=== PATIENT | female | born 1980 | race Caucasian/White ===

== ENCOUNTER 2017-05-18 22:36 | Emergency (ER) | payer OTHER ==
[2017-05-18 22:51] VITALS: RESP 20
[2017-05-18] MEDS ORDERED: Sodium Chloride 0.9% 1,000 ML IV STA (23:20)
[2017-05-18 23:32] LABS: BASO # 0.1 K/uL (0.0-0.2); BASO % 1.3 % (0.0-2.0); EOS # 0.1 K/uL (0.0-0.7); EOS % 1.4 % (0.0-4.0); HEMATOCRIT 36.2 % (34.0-47.0); LYMPH # 2.5 K/uL (1.0-4.3); LYMPH % 49.8 % (20.0-40.0); MEAN CELL VOLUME 81.6 fL (81.0-99.0); MEAN CORPUSCULAR HEMOGLOBIN 26.7 pg (27.0-31.0); MEAN CORPUSCULAR HGB CONC 32.8 g/dL (33.0-37.0); MEAN PLATELET VOLUME 8.1 fL (7.2-11.7); MONO # 0.6 K/uL (0.0-0.8); MONO % 12.3 % (0.0-10.0); NRBC % 0.1 % (0.0-2.0); WHITE BLOOD COUNT 5.1 K/uL (4.8-10.8)
[2017-05-18] MEDS ORDERED: Sodium Chloride 0.9% 1,000 ML ONE (23:32)
[2017-05-18 23:49] LABS: ALB/GLOB RATIO 1.3 (1.0-2.1); ALKALINE PHOSPHATASE 33 U/L (38-126); ALT/SGPT 42 U/L (9-52); AST/SGOT 39 U/L (14-36); BILIRUBIN,TOTAL 0.4 mg/dL (0.2-1.3); BLOOD UREA NITROGEN 9 mg/dL (7-17); CALCIUM 9.4 mg/dl (8.6-10.4); CARBON DIOXIDE 25 mmol/L (22-30); CHLORIDE 101 mmol/L (98-107); GFR AFRICAN-AMERICAN > 60; GLUCOSE,RANDOM 63 mg/dL (65-105); POTASSIUM 3.9 mmol/L (3.6-5.2); SODIUM 141 mmol/L (132-148); TOTAL PROTEIN 7.6 g/dL (6.3-8.3)
[2017-05-19 00:19] LABS: THYROID STIMULATING HORMONE < 0.02 mIU/L (0.46-4.68)
--- NOTE | 2017-05-19 01:02 | C.PDOC ---
History Of Present Illness 36 year old female who presents to the ER with a complaint of dizziness that she describes as spinning sensation since yesterday that worsened today while at work. Patient reports the dizziness is positional and worsens with head movement and is associated with nausea. Denies headache, weakness, vomiting, abdominal pain, chest pain, or palpitations. Time Seen by Provider: 05/18/17 23:04 Chief Complaint (Nursing): Medical Clearance History Per: Patient History/Exam Limitations: no limitations Onset/Duration Of Symptoms: Days Recent travel outside of the [place]: No Past Medical History Reviewed: Historical Data, Nursing Documentation, Vital Signs Vital Signs: Last Vital Signs Temp 97.7 F 05/19/17 01:42 Pulse 83 05/19/17 01:42 Resp 20 05/19/17 01:42 BP 115/66 05/19/17 01:42 Pulse Ox 98 05/19/17 01:42 - Medical History PMH: Gastritis (?), Hypothyroidism Surgical History: No Surg Hx Family History: States: Unknown Family Hx - Social History Hx Tobacco Use: No Hx Alcohol Use: No Hx Substance Use: No - Immunization History Hx Tetanus Toxoid Vaccination: No Hx Influenza Vaccination: Yes Hx Pneumococcal Vaccination: No Review Of Systems Cardiovascular: Negative for: Chest Pain, Palpitations Gastrointestinal: Negative for: Vomiting, Abdominal Pain Neurological: Positive for: Dizziness. Negative for: Weakness, Headache Physical Exam - Physical Exam Appears: Non-toxic Skin: Normal Color, Warm, Dry Head: Atraumatic, Normacephalic Eye(s): bilateral: Other (Horizontal nystagmus) Oral Mucosa: Moist Neck: Normal, Supple Chest: Symmetrical, No Tenderness Cardiovascular: Rhythm Regular, No Murmur Respiratory: Normal Breath Sounds, No Rales, No Rhonchi, No Wheezing Gastrointestinal/Abdominal: Soft, No Tenderness Extremity: Normal ROM (x4) Neurological/Psych: Oriented x3, Normal Speech, Normal Cognition, Normal Motor, Normal Sensation Gait: Steady ED Course And Treatment - Laboratory Results Result Diagrams: 05/18/17 23:29 05/18/17 23:29 O2 Sat by Pulse Oximetry: 96 (Room air) Pulse Ox Interpretation: Normal Progress Note: Blood work and urinalysis ordered. Antivert and IV fluids administered. On reevaluation, patient feels better, she no longer feels dizzy; will discharge home and instruct to follow up with PMD. Reevaluation Time: Reassessment Condition: Improved Disposition Counseled Patient/Family Regarding: Diagnosis, Need For Followup, Rx Given - Disposition Referrals: Nate Cross MD [Staff Provider] - Disposition: HOME/ ROUTINE Disposition Time: Condition: STABLE Additional Instructions: Please follow up with Dr Cross or current doctor for reeval ( Bring your blood results) Take meclizine as needed for diizziness Return to ER if worse Prescriptions: Meclizine [Meclizine*] 25 mg PO Q6 #20 tab Instructions: Vertigo (ED) Forms: [employer] (Danish) Print Language: SERBIAN - POA Present On Arrival: Blood Incompatibility - Clinical Impression Clinical Impression: Vertigo, Low TSH level - Scribe Statement The provider has reviewed the documentation as recorded by the Scribjessica Hurtado All medical record entries made by the Scribe were at my direction and personally dictated by me. I have reviewed the chart and agree that the record accurately reflects my personal performance of the history, physical exam, medical decision making, and the department course for this patient. I have also personally directed, reviewed, and agree with the discharge instructions and disposition.
[2017-05-19 01:43] VITALS: BP 115/66; PULSE 83; TEMP 97.7
[2017-05-19 02:00] VITALS: O2SAT 96
== END 2017-05-19 02:10 | disposition home or self-care (01) ==
LOC: C.ER 22:36
DX: R42 Dizziness and giddiness (principal); R94.6 Abnormal results of thyroid function studies
CPT/HCPCS: 80053; 82948; 84443; 84703; 85025; 96360; 99283; J7040

== ENCOUNTER 2017-07-19 06:59 | Day surgery (SDC) | payer OTHER ==
[2017-07-19 07:20] VITALS: BMI 29.0
[2017-07-19] MEDS ORDERED: Lactated Ringer's 1,000 ML IV ONE (08:00)
[2017-07-19] MEDS ORDERED: Propofol 10 mg/ml Inj (20 ML) ONE (08:01)
[2017-07-19] MEDS ORDERED: Lidocaine Hydrochloride 5 ML INJ ONE (08:01)
--- NOTE | 2017-07-19 08:03 | CP.SDSHP ---
Same Day Surgery H & P - History Proposed Procedure: colonoscopy - Previous Medical/Surgical History Cardiac: Hypertension - Allergies Allergies: Allergies FISH Adverse Reaction (Intermediate, Verified 05/18/17 22:51) VOMITING seafood Allergy (Severe, Uncoded 11/02/16 00:00) ANAPHYLAXIS - Physical Exam Vital Signs: Vital Signs 07/19/17 07:20 Temperature 98.4 F Pulse Rate 80 Respiratory 20 Rate Blood Pressure 119/71 O2 Sat by Pulse 97 Oximetry - Date & Time Date: 07/19/17 Time: 08:03 Short Stay Discharge - Short Stay Discharge Admitting Diagnosis/Reason for Visit: HEMORRHAGE OF ANUS AND RECTUM//CHANGE IN BOWEL HAB Disposition: HOME/ ROUTINE
[2017-07-19 08:50] VITALS: TEMP 97; O2SAT 100
[2017-07-19 09:26] VITALS: BP 109/63; PULSE 71; RESP 12
== END 2017-07-19 09:24 | disposition home or self-care (01) ==
LOC: C.ENDO 06:59
PROVIDERS: ATTEND Colon & Rectal Surgery
DX: K64.8 Other hemorrhoids (principal); R19.4 Change in bowel habit; K62.5 Hemorrhage of anus and rectum
CPT/HCPCS: 45378; 84703; J2704; J7120

== ENCOUNTER 2017-09-27 22:59 | Emergency (ER) | payer OTHER ==
[2017-09-27 23:00] VITALS: BMI 29.0
[2017-09-27 23:17] VITALS: O2SAT 99
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
[2017-09-28 01:01] VITALS: BP 102/68; PULSE 71; RESP 18; TEMP 97.8
--- NOTE | 2017-09-28 06:54 | RAD ---
Chest x-ray two views History: Right-sided pain. Comparison: 06/08/2014 Findings: No focal infiltrate or effusion. Heart size within normal limits. Impression: No focal infiltrate or effusion. Heart size within normal limits.
--- NOTE | 2017-10-02 15:51 | CARD ---
APPROVED REPORT EKG Measurement Heart [id number] <Conclusion> Normal sinus rhythm with sinus arrhythmia Septal infarct, age undetermined Abnormal ECG
== END 2017-09-28 01:10 | disposition home or self-care (01) ==
LOC: C.ER 22:59
DX: R07.89 Other chest pain (principal)

== ENCOUNTER 2018-08-14 23:52 | Emergency (ER) | payer OTHER ==
[2018-08-14 23:52] VITALS: BMI 29.0
[2018-08-15 00:10] VITALS: BP 128/75; PULSE 85; RESP 20; TEMP 98.1; O2SAT 100
--- NOTE | 2018-08-15 00:43 | C.PDOC ---
History Of Present Illness 37 year old female presents to the ED c/o left ear pain, sore throat, cough, runny nose for the past 2 days. Patient denies fever, chills, nausea, vomit, rash, recent travel, sick contacts. Time Seen by Provider: 08/15/18 00:04 Chief Complaint (Nursing): ENT Problem History Per: Patient History/Exam Limitations: None Onset/Duration Of Symptoms: Days (2) Current Symptoms Are (Timing): Still Present Quality (Ear): Pain W/Touch Quality (Mouth/Throat): Tenderness Anticoagulant/Antiplatlet Use?: No Recent Aspirin Use: No Past Medical History Reviewed: Historical Data, Nursing Documentation, Vital Signs Vital Signs: Last Vital Signs Temp 98.1 F 08/15/18 00:01 Pulse 85 08/15/18 00:01 Resp 20 08/15/18 00:01 BP 128/75 08/15/18 00:01 Pulse Ox 100 08/15/18 00:01 - Medical History PMH: Gastritis (?), HTN, Hypothyroidism Denies: Chronic Kidney Disease Surgical History: No Surg Hx Family History: States: Unknown Family Hx - Social History Hx Tobacco Use: No Hx Alcohol Use: No Hx Substance Use: No - Immunization History Hx Tetanus Toxoid Vaccination: No Hx Influenza Vaccination: No Hx Pneumococcal Vaccination: No Review Of Systems Constitutional: Negative for: Fever, Chills ENT: Positive for: Ear Pain, Nose Discharge, Throat Pain. Negative for: Ear Discharge, Nose Congestion Respiratory: Positive for: Cough. Negative for: Shortness of Breath, Wheezing Gastrointestinal: Negative for: Nausea, Vomiting, Abdominal Pain Skin: Negative for: Rash Neurological: Negative for: Headache, Dizziness Physical Exam - Physical Exam Appears: Non-toxic, No Acute Distress Skin: Normal Color, Warm, Dry, No Rash Head: Atraumatic, Normacephalic Eye(s): bilateral: Normal Inspection, PERRL, EOMI Ear(s): Bilateral: Normal Oral Mucosa: Moist Throat: Normal, No Erythema, No Exudate Neck: Normal ROM, Supple Chest: Symmetrical Cardiovascular: Rhythm Regular Respiratory: Normal Breath Sounds, No Rales, No Rhonchi, No Wheezing Gastrointestinal/Abdominal: Soft, No Tenderness, No Guarding, No Rebound Extremity: Normal ROM, No Tenderness, No Swelling Neurological/Psych: Oriented x3, Normal Speech, Normal Cognition Gait: Steady ED Course And Treatment O2 Sat by Pulse Oximetry: 100 (On RA) Pulse Ox Interpretation: Normal Medical Decision Making Medical Decision Making: Plan: * Motrin 600 mg PO * claritin 10 mg PO * Prednisone 40 mg PO Disposition - Disposition Referrals: Zohaib Watts MD [Staff Provider] - Disposition: HOME/ ROUTINE Disposition Time: 00:41 Condition: STABLE Additional Instructions: Follow up with the medical doctor within 1-2 days. Return if worsened. Prescriptions: Ibuprofen [Motrin] 600 mg PO TID #21 tab Loratadine [Claritin] 10 mg PO DAILY #10 tab predniSONE [Prednisone] 20 mg PO BID #10 tab Instructions: Viral Pharyngitis Forms: [employer] (Irish) Print Language: HUNGARIAN - Clinical Impression Clinical Impression: Viral pharyngitis - PA / CLINICAL ASSOC / Resident Statement MD/DO has reviewed & agrees with the documentation as recorded. - Scribe Statement The provider has reviewed the documentation as recorded by the Scribe Bobby Lorenzana All medical record entries made by the Scribe were at my direction and personally dictated by me. I have reviewed the chart and agree that the record accurately reflects my personal performance of the history, physical exam, medical decision making, and the department course for this patient. I have also personally directed, reviewed, and agree with the discharge instructions and disposition.
== END 2018-08-15 00:48 | disposition home or self-care (01) ==
LOC: C.ER 23:52
DX: J02.9 Acute pharyngitis, unspecified (principal)

== ENCOUNTER 2018-11-20 17:12 | Emergency (ER) | payer OTHER ==
[2018-11-20 17:12] VITALS: BMI 29.0
[2018-11-20] MEDS ORDERED: Lactated Ringer's 1,000 ML IV ONE (17:43)
[2018-11-20] MEDS ORDERED: Lactated Ringer's 1,000 ML ONE (17:52)
[2018-11-20 18:01] LABS: SQUAMOUS EPITHIAL 13 /hpf (0-5); URINE BACTERIA OCC (<OCC); URINE BILIRUBIN NEGATIVE (NEGATIVE); URINE BLOOD NEGATIVE (NEGATIVE); URINE CLARITY Hazy (Clear); URINE COLOR Yellow (YELLOW); URINE GLUCOSE (UA) NORMAL (Normal); URINE LEUKOCYTE ESTERASE 1+ Leu/uL (Negative); URINE PROTEIN NEGATIVE (NEGATIVE); URINE UROBILINOGEN NORMAL mg/dL (0.2-1.0)
[2018-11-20 18:01] LABS: BASO % 0.5 % (0.0-2.0); EOS # 0.1 K/uL (0.0-0.7); EOS % 0.8 % (0.0-4.0); HEMOGLOBIN 11.1 g/dL (11.0-16.0); LYMPH # 2.1 K/uL (1.0-4.3); LYMPH % 30.6 % (20.0-40.0); MEAN CELL VOLUME 83.7 fL (81.0-99.0); MEAN CORPUSCULAR HEMOGLOBIN 27.2 pg (27.0-31.0); MEAN CORPUSCULAR HGB CONC 32.6 g/dL (33.0-37.0); MONO # 0.7 K/uL (0.0-0.8); MONO % 10.4 % (0.0-10.0); NEUT % 57.7 % (50.0-75.0); NRBC % 0.1 % (0.0-2.0); RBC 4.07 Mil/uL (3.80-5.20); RED CELL DISTRIBUTION WIDTH 15.2 % (11.5-14.5); WHITE BLOOD COUNT 6.9 K/uL (4.8-10.8)
[2018-11-20 18:05] LABS: HCG,QUALITATIVE URINE POSITIVE (NEGATIVE)
[2018-11-20 18:14] LABS: BLOOD UREA NITROGEN 10 mg/dL (7-17); CALCIUM 9.4 mg/dl (8.6-10.4); GFR NON-AFRICAN AMERICAN > 60
--- NOTE | 2018-11-20 18:47 | C.PDOC ---
History Of Present Illness 38 year old female, who is currently around 13 weeks ( with one termination), presents to the ED for evaluation of pelvic pain which began while she was at work at 1100 today. Patient describes a cramping sensation that has been worsening since onset. She reports a downward, pressure-like sensation. Patient has not taken anything for pain. Patient sees Dr. Duff for care and underwent an ultrasound on November 14, which was normal. She denies urinary symptoms, vaginal discharge, and vaginal bleeding at this time. Past medical history: hypothyroidism (no longer taking any medications) surgical history: none social history: denies smoking family history: none Time Seen by Provider: 11/20/18 17:27 Chief Complaint (Nursing): Abdominal Pain History Per: Patient History/Exam Limitations: no limitations Onset/Duration Of Symptoms: Hrs Current Symptoms Are (Timing): Worse Quality Of Discomfort: Cramping, "Pain" Associated Symptoms: denies: Urinary Symptoms Additional History Per: Patient Abnormal Vaginal Bleeding: No : 4 Para: 2 Past Medical History Reviewed: Historical Data, Nursing Documentation, Vital Signs Vital Signs: Last Vital Signs Temp 98.4 F 11/20/18 17:19 Pulse 96 H 11/20/18 17:19 Resp 20 11/20/18 17:19 BP 147/73 11/20/18 17:19 Pulse Ox 99 11/20/18 17:19 - Medical History PMH: Gastritis (?), HTN, Hypothyroidism Denies: Chronic Kidney Disease Surgical History: No Surg Hx Family History: States: Unknown Family Hx - Social History Hx Tobacco Use: No Hx Alcohol Use: No Hx Substance Use: No - Immunization History Hx Tetanus Toxoid Vaccination: No Hx Influenza Vaccination: No Hx Pneumococcal Vaccination: No Review Of Systems Genitourinary: Positive for: Pelvic Pain. Negative for: Dysuria, Frequency, Hematuria, Vaginal Discharge, Vaginal Bleeding Physical Exam - Physical Exam Appears: Non-toxic, Other (in acute distress ) Skin: Warm, Dry Head: Atraumatic, Normacephalic Eye(s): bilateral: PERRL, EOMI Oral Mucosa: Moist Throat: No Erythema, No Exudate Neck: Normal ROM, Trachea Midline Lymphatic: No Adenopathy Respiratory: Normal Breath Sounds, No Wheezing Gastrointestinal/Abdominal: Soft, Tenderness (suprapubic ), No Guarding, No Rebound Back: Normal Inspection, No Paraspinal Tenderness Extremity: Normal ROM, No Pedal Edema, No Calf Tenderness Neurological/Psych: Oriented x3, Normal Motor, Normal Sensation ED Course And Treatment - Laboratory Results Result Diagrams: 11/20/18 17:51 11/20/18 17:51 Lab Results: Urine Color Yellow (YELLOW) 11/20/18 17:47 Urine Clarity Hazy (Clear) 11/20/18 17:47 Urine pH 7.0 (5.0-8.0) 11/20/18 17:47 Ur Specific Ron[place] 1.015 (1.003-1.030) 11/20/18 17:47 Urine Protein Negative mg/dL (NEGATIVE) 11/20/18 17:47 Urine Glucose (UA) Normal mg/dL (Normal) 11/20/18 17:47 Urine Ketones Negative mg/dL (NEGATIVE) 11/20/18 17:47 Urine Blood Negative (NEGATIVE) 11/20/18 17:47 Urine Nitrate Negative (NEGATIVE) 11/20/18 17:47 Urine Bilirubin Negative (NEGATIVE) 11/20/18 17:47 Urine Urobilinogen Normal mg/dL (0.2-1.0) 11/20/18 17:47 Ur Leukocyte Esterase 1+ Pat/uL (Negative) H 11/20/18 17:47 Urine WBC (Auto) 5 /hpf (0-5) 11/20/18 17:47 Urine RBC (Auto) 1 /hpf (0-3) 11/20/18 17:47 Ur Squamous Epith Cells 13 /hpf (0-5) H 11/20/18 17:47 Urine Bacteria Occ (<OCC) H 11/20/18 17:47 Urine HCG, Qual Positive (NEGATIVE) 11/20/18 17:47 Urine HCG, Qual Positive (NEGATIVE) 11/20/18 17:47 O2 Sat by Pulse Oximetry: 99 (on RA ) Pulse Ox Interpretation: Normal - CT Scan/US US_OB Other Rad Studies (CT/US): Read By Radiologist, Radiology Report Reviewed CT/US Interpretation: EXAM: US Obstetrical, Complete <14 weeks. CLINICAL HISTORY: Pelvic pain . TECHNIQUE: Transvaginal and transabdominal imaging of the maternal pelvis and a <14 week gestation with image documentation. COMPARISON: None provided. FINDINGS: GESTATION: There is an intrauterine gestational sac which contains a pole. cardiac activity is identified and is 154 bpm. Mean gestational sac size is 7.3 cm. pole is 7.75 cm corresponding to 13 weeks and 6 days. Placenta is situated posteriorly. UTERUS: Unremarkable. No myometrial mass. CERVIX: Closed. Unremarkable. OVARIES: Unremarkable. No mass. Left ovary not visualized. FREE FLUID: No free fluid. IMPRESSION: Single live intrauterine gestation of approximately 13 weeks and 6 days. No adnexal mass or free fluid. Close clinical correlation and follow-up study recommended. Medical Decision Making Medical Decision Making: Impression: pelvic pain associated with Differential diagnoses include but are not limited to: * ectopic * demise * threatened miscarriage * urinary tract infection * cystitis Plan: * bloodwork * urinalysis * OB transvaginal ultrasound * Tylenol PO * Lactated Ringers IV * reassess and disposition Progress: Bloodwork, urinalysis and OB transvaginal US ordered. Tylenol PO and Lactated Ringers IV given. Bloodwork shows 1+ leukocytes and occasional bacteria. Disposition Counseled Patient/Family Regarding: Studies Performed, Diagnosis, Need For Followup, Rx Given - Disposition Referrals: Jenny Duff, ACNP-BC [Advanced Practice Nurse] - ([facility] ADDISON WILLIE EN 2-3 FERNÁNDEZ A CHEQAR DE NUO) Disposition: HOME/ ROUTINE Disposition Time: 20:00 Condition: STABLE Additional Instructions: SID MUCHOS LIQUIDOS Y SANJUANITA ANTIBIOTICOS A RECETO SANJUANITA TYLENOL PARA DOLOR. Prescriptions: Nitrofurantoin Macrocrystals [Macrobid] 1 cap PO BID #14 cap Instructions: Urinary Tract Infection, Adult (DC), Round Ligament Pain, Stomach Pain in Early Print Language: ALGERIAN - Clinical Impression Clinical Impression: Abdominal pain during , UTI (urinary tract infection) - Scribe Statement The provider has reviewed the documentation as recorded by the Scribe (Margie Delcid) Provider Attestation: All medical record entries made by the Scribe were at my direction and personally dictated by me. I have reviewed the chart and agree that the record accurately reflects my personal performance of the history, physical exam, medical decision making, and the department course for this patient. I have also personally directed, reviewed, and agree with the discharge instructions and disposition.
[2018-11-20 20:22] VITALS: BP 128/63; PULSE 81; RESP 20; TEMP 98.6
[2018-11-20 22:30] VITALS: O2SAT 99
--- NOTE | 2018-11-21 12:25 | US ---
Date of service: 11/20/2018 PROCEDURE: OB Pelvic Ultrasound HISTORY: pelvic pain LMP: 08/21/2018 COMPARISON: None available. FINDINGS: UTERUS: Gestational sac: Single live intrauterine gestation. Heart rate: 154 bpm. CRL measures 7.75 cm equivalent to 13 weeks and 6 days of gestational age. age (Ultrasound estimated): 13 weeks and 6 days Silva-gestational hemorrhage: None. Date of delivery (Ultrasound estimated) : 05/22/2019 Uterus measures 18.6 x 9.9 x 10.2 cm. Normal in size and appearance. CERVIX: Measures 3.6 x 2.6 x 3.4 cm. Long and closed. No cervical abnormality seen. RIGHT OVARY: Not visualized. LEFT OVARY: Measures cm. No solid mass. Normal flow. FREE FLUID: None. OTHER FINDINGS: None. IMPRESSION: Single live intrauterine gestation with mean gestational age of 13 weeks and 6 days. The estimated date of delivery by ultrasound is 05/22/2019. The ultrasound dates correspond with the clinical dates A preliminary report was provided by [facility].
== END 2018-11-20 20:21 | disposition home or self-care (01) ==
LOC: C.ER 17:12
DX: O23.41 Unspecified infection of urinary tract in pregnancy, first trimester (principal); O26.891 Other specified pregnancy related conditions, first trimester; R10.30 Lower abdominal pain, unspecified; Z3A.13 13 weeks gestation of pregnancy
CPT/HCPCS: 76801; 80048; 81001; 84702; 84703; 85025; 87086; 87491; 87591; 96360; 99285; J7120